=== PATIENT | male | born 1965 | race Caucasian/White ===

== ENCOUNTER 2017-01-07 09:57 | Emergency (ER) | payer BC ==
[~2017-01-07] VITALS: Ht 182.9 cm; Wt 93.4 kg
[~2017-01-07 09:57] MED LIST: AZOR 10/20 M1 TABLET PO; AZOR 10/40 M1 TABLET PO; DILAUDID4 MG PO; HYDROCHLOROTH12.5 M3 PO; LOSARTAN POTAS100 MG PO; NAPROXEN500 MG PO; NEXIUM10 MG PO; PREDNISONE20 MG PO; PRILOSEC40 MG PO; QUETIAPINE FUM300 MG PO; ZANAFLEX4 M1 PO; ZYPREXA5 MG PO
[2017-01-07] MEDS ORDERED: LISINOPRIL40 MG PO (11:17)
[2017-01-07] MEDS ORDERED: NORVASC10 MG PO (11:18)
[2017-01-07] MEDS ORDERED: LAMICTAL200 MG PO (11:18)
[2017-01-07 11:19] LABS: EOSINOPHIL (%) 2.1 % (0-5); EOSINOPHIL COUNT 0.1 K/uL (0-0.3); HEMATOCRIT 40.3 % (38.0-50.0); IMMATURE GRANULOCYTE (%) 0.2 % (0.0-0.7); INSTRUMENT ABS NEUTROPHIL CT 2.6 K/uL; LYMPHOCYTE COUNT 1.2 K/uL (1.0-2.8); MCH 29.6 PG (29.0-34.0); MCHC 34.7 G/DL (30.0-36.0); MCV 85.2 FL (86-99); MEAN PLAT.VOLUME 8.5 uM^3 (9.0-12.4); MONOCYTE (%) 7.3 % (3-12); MONOCYTE COUNT 0.3 K/uL (0-0.8); NEUTROPHIL (%) 60.9 % (45-76); NEUTROPHIL COUNT 2.6 K/uL (1.8-6.4); PLATELET COUNT 193 K/uL (156-360); RBC DIS.WIDTH-CV 12.3 % (11.8-14.6); RED BLOOD COUNT 4.73 M/uL (4.00-5.50); WHITE BLOOD COUNT 4.2 K/uL (4.1-10.2)
[2017-01-07 11:28] LABS: CHLORIDE 105 mEq/L (99-109); SODIUM 138 mEq/L (136-147)
[2017-01-07 11:30] LABS: GLUCOSE 95 mg/dL (70-99)
[2017-01-07 11:32] LABS: ANION GAP 8 MEQ/L (2-14); TOTAL BILIRUBIN 0.7 mg/dL (0.0-1.0)
[2017-01-07 11:34] LABS: ALKALINE PHOSPHATASE 72 IU/L (3-129); GFR ESTIMATE (CALCULATED) > 59 mL/min/
[2017-01-07 11:35] LABS: UREA NITROGEN (BUN) 14 mg/dL (9-23)
[2017-01-07 11:38] LABS: LIPASE 16 U/L (1.0-51.0)
[2017-01-07] MEDS ORDERED: ZOFRAN ODT4 MG PO (11:48)
[2017-01-07 11:55] VITALS: BP 143/84
== END 2017-01-07 11:56 | disposition home or self-care (01) ==
LOC: EME 09:57
PROVIDERS: Physician Assistant
DX: R11.0 Nausea (principal); K21.9 Gastro-esophageal reflux disease without esophagitis; Z87.442 Personal history of urinary calculi; Z88.6 Allergy status to analgesic agent
CPT/HCPCS: 80053; 83690; 85025; 99281; 99284

== ENCOUNTER → 2017-06-17 | Outpatient (CLI) | payer BC ==
[~2017-06-17] MED LIST changes: +LAMICTAL200 MG PO; +LISINOPRIL40 MG PO; +NORVASC10 MG PO; +ZOFRAN ODT4 MG PO
== END | disposition home or self-care (01) ==
LOC: RAD 08:07
DX: K44.9 Diaphragmatic hernia without obstruction or gangrene (principal)
CPT/HCPCS: 74247

== ENCOUNTER 2017-08-02 10:10 | Emergency (ER) | payer OTHER, BC ==
[~2017-08-02] VITALS: Ht 182.9 cm; Wt 96.9 kg
[2017-08-02] MEDS ORDERED: KEFLEX500 MG PO (12:47)
[2017-08-02 13:07] VITALS: BP 153/98
== END 2017-08-02 13:07 | disposition home or self-care (01) ==
LOC: EME 10:10
PROC: 3E0234Z Introduction of Serum, Toxoid and Vaccine into Muscle, Percutaneous Approach (ICD-10-PCS; principal; 2017-08-02)
DX: S60.551A Superficial foreign body of right hand, initial encounter (principal); W29.4XXA Contact with nail gun, initial encounter; Z23 Encounter for immunization; Z88.5 Allergy status to narcotic agent; Z91.030 Bee allergy status
CPT/HCPCS: 73130; 99281; 99283